=== PATIENT | male | born 1975 | race American Indian/Alaskan Native ===

== ENCOUNTER 2017-03-27 11:54 | Emergency (ER) | payer MEDICAID ==
[2017-03-27 11:54] VITALS: BMI 24.1
[2017-03-27 12:05] VITALS: BP 148/65; PULSE 81; RESP 20; TEMP 97; O2SAT 99
--- NOTE | 2017-03-27 12:54 | ED PDOC ---
HPI: General Adult Time Seen by Provider: 03/27/17 12:09 Chief Complaint (Nursing): Medical Clearance Chief Complaint (Provider): lab Additional Complaint(s): 42yoM in ED sent from clinic for PT/INR/PTT and to get coumadin Rx. no medical complaints at this time. Past Medical History Reviewed: Historical Data, Nursing Documentation, Vital Signs Vital Signs: Last Vital Signs Temp 97.0 F L 03/27/17 12:03 Pulse 81 03/27/17 12:03 Resp 20 03/27/17 12:03 BP 148/65 03/27/17 12:03 Pulse Ox 99 03/27/17 13:20 - Medical History PMH: HTN - Family History Family History: States: No Known Family Hx - Immunization History Hx Tetanus Toxoid Vaccination: Yes (2 years ago) - Home Medications Home Medications: Ambulatory Orders Medication Instructions Recorded Warfarin [Coumadin] 7.5 mg PO DAILY #8 tab 03/27/17 - Allergies Allergies/Adverse Reactions: Allergies Allergy/AdvReac Type Severity Reaction Status Date / Time No Known Allergies Allergy Verified 04/07/14 19:20 Review of Systems ROS Statement: Except As Marked, All Systems Reviewed And Found Negative Constitutional: Negative for: Fever, Weakness Skin: Negative for: Bruising Physical Exam - Reviewed Nursing Documentation Reviewed: Yes Vital Signs Reviewed: Yes - Physical Exam Appears: Positive for: Well, Non-toxic, No Acute Distress Skin: Positive for: Normal Color, Warm, DRY Cardiovascular/Chest: Positive for: Regular Rate, Rhythm Respiratory: Positive for: CNT, Normal Breath Sounds Extremity: Positive for: Normal ROM Neurologic/Psych: Positive for: Alert, Oriented - ECG O2 Sat by Pulse Oximetry: 99 - Progress ED Course And Treament: 13:15 Upon provider reevaluation patient is feeling better, is medically stable, and requires no further treatment in the ED at this time. Patient was counseled to take Coumadin at 7.5 mg and all questions were answered regarding diagnosis. There is agreement to discharge plan. Return if symptoms persist or worsen. 03/27/17 12:20 PT 25.4 H INR 2.4 H APTT 38.4 H Scribe Attestation: Documented by Annie Cutler, acting as a scribe for FRANCESCO Gates. Provider Scribe Attestation: All medical record entries made by the Scribe were at my direction and personally dictated by me. I have reviewed the chart and agree that the record accurately reflects my personal performance of the history, physical exam, medical decision making, and the department course for this patient. I have also personally directed, reviewed, and agree with the discharge instructions and disposition. Disposition - Clinical Impression Clinical Impression: History of Coumadin therapy, Anticoagulation monitoring, INR range 2.5-3.5 - Patient ED Disposition Is Patient to be Admitted: No Doctor Will See Patient In The: Office Counseled Patient/Family Regarding: Studies Performed, Need For Followup - Disposition Disposition: Routine/Home Disposition Time: 13:15 Condition: STABLE Additional Instructions: It is imperative you follow up with your doctor in in 3 days for a repeat INR. if you are dizzy please return to ER. Prescriptions: Warfarin [Coumadin] 7.5 mg PO DAILY #8 tab Instructions: Warfarin (By mouth) Forms: [employer] ([place])
[2017-03-27 13:07] LABS: PARTIAL THROMBOPLASTIN TIME 38.4 Seconds (25.6-37.1)
== END 2017-03-27 13:21 | disposition home or self-care (01) ==
LOC: H.ER 11:54
DX: Z79.01 Long term (current) use of anticoagulants (principal); Z51.81 Encounter for therapeutic drug level monitoring; I10 Essential (primary) hypertension

== ENCOUNTER 2017-09-16 09:38 | Emergency (ER) | payer MEDICAID ==
[2017-09-16 09:42] VITALS: BMI 22.4
[2017-09-16 09:43] VITALS: BP 134/89; PULSE 87; RESP 20; TEMP 98.4
[2017-09-16 09:56] VITALS: O2SAT 98
[2017-09-16] MEDS ORDERED: Lidocaine 1% Inj (20ml) IJ STA (10:28)
--- NOTE | 2017-09-16 10:34 | ED PDOC ---
HPI: Skin/Bite Injury Time Seen by Provider: 09/16/17 10:15 Chief Complaint (Nursing): Abnormal Skin Integrity Chief Complaint (Provider): Abscess History Per: Patient History/Exam Limitations: no limitations Onset/Duration Of Symptoms: Days (x 4-5) Current Symptoms Are (Timing): Still Present Location Of Injury: Left: Face (preauricular space) Quality Of Symptoms: Painful, Swollen Pain Scale Rating Of: 6 Additional Complaint(s): Hardik is a 42 y/o male with a history of abscesses who presents to the ED complaining of an abscess to the left side of his face for the past 4-5 days. Patient states he's been applying warm compresses to his face but has not taken any medications for his symptoms. He denies fever, chills, nausea, vomiting, diarrhea, headache, or vision changes. PMD: Rahul Past Medical History Reviewed: Historical Data, Nursing Documentation, Vital Signs Vital Signs: Last Vital Signs Temp 98.4 F 09/16/17 09:42 Pulse 87 09/16/17 09:42 Resp 20 09/16/17 09:42 BP 134/89 09/16/17 09:42 Pulse Ox 98 09/16/17 11:09 - Medical History PMH: HTN Other PMH: [place] - Surgical History Other surgeries: aortic valve repair, jaw wired shut status post fracture - Family History Family History: States: Unknown Family Hx - Social History Alcohol: None (history of alcohol abuse, no current use) Drugs: Cannabis (daily) - Immunization History Hx Tetanus Toxoid Vaccination: Yes (2 years ago) - Home Medications Home Medications: Ambulatory Orders Medication Instructions Recorded Warfarin [Coumadin] 7.5 mg PO DAILY #8 tab 03/27/17 Clindamycin [Cleocin] 300 mg PO TID #21 cap 09/16/17 - Allergies Allergies/Adverse Reactions: Allergies Allergy/AdvReac Type Severity Reaction Status Date / Time No Known Allergies Allergy Verified 04/07/14 19:20 Review of Systems ROS Statement: Except As Marked, All Systems Reviewed And Found Negative Constitutional: Negative for: Fever, Chills, Weakness Eyes: Negative for: Vision Change ENT: Negative for: Ear Pain, Throat Pain Cardiovascular: Negative for: Chest Pain Respiratory: Negative for: Cough Gastrointestinal: Negative for: Nausea, Vomiting, Diarrhea Skin: Positive for: Other (abscess left face) Neurological: Negative for: Headache Physical Exam - Reviewed Nursing Documentation Reviewed: Yes Vital Signs Reviewed: Yes - Physical Exam Appears: Positive for: Well, Non-toxic, No Acute Distress Head Exam: Positive for: ATRAUMATIC, NORMOCEPHALIC Skin: Positive for: Normal Color (1 cm x 1.5 cm fluctuant, erythematous abscess to left preauricular space, (+) tenderness, (-) surrounding cellulitis (-) active drainage), Warm, Dry Eye Exam: Positive for: EOMI, PERRL. Negative for: Nystagmus ENT: Positive for: Normal ENT Inspection, Pharynx Is (clear, uvula midline). Negative for: Nasal Congestion Neck: Positive for: Painless ROM, Supple Cardiovascular/Chest: Positive for: Regular Rate, Rhythm. Negative for: Murmur Respiratory: Positive for: Normal Breath Sounds. Negative for: Decreased Breath Sounds, Accessory Muscle Use, Respiratory Distress Gastrointestinal/Abdominal: Positive for: Soft. Negative for: Tenderness, Mass , Distended, Guarding Neurologic/Psych: Positive for: Alert, Oriented, Gait (steady). Negative for: Motor/Sensory Deficits - ECG O2 Sat by Pulse Oximetry: 98 (RA) Pulse Ox Interpretation: Normal Medical Decision Making Medical Decision Making: Time: 10:27 Initial Impression: Abscess Initial Plan: -Cleocin PO -I&D I&D performed at bedside by Kevin PADRON with purulent drainage. Patient tolerated procedure well. Procedure note below. Educated on wound care. Advised follow up in 2 days with PMD/ED/Clinic for packing removal/wound check. Based on history, exam and diagnostic results, plan will be for outpatient follow up. Advised to take medication as prescribed. Return to the emergency room at any time for any new or worsening symptoms. Patient states he fully agrees with and understands discharge instructions. States that he agrees with the plan and disposition. Verbalized and repeated discharge instructions and plan. I have given the patient opportunity to ask any additional questions. Scribe Attestation: Documented by Dalton Capone, acting as a scribe for Dori Brown PA-C Provider Scribe Attestation: All medical record entries made by the Scribe were at my direction and personally dictated by me. I have reviewed the chart and agree that the record accurately reflects my personal performance of the history, physical exam, medical decision making, and the department course for this patient. I have also personally directed, reviewed, and agree with the discharge instructions and disposition. Disposition - Clinical Impression Clinical Impression: Abscess - Patient ED Disposition Is Patient to be Admitted: No Counseled Patient/Family Regarding: Diagnosis, Need For Followup, Rx Given - Disposition Referrals: [facility] [Outside] Disposition: Routine/Home Disposition Time: 11:02 Condition: STABLE Additional Instructions: Follow up with PMD/ED/clinic in 1-2 days without fail for wound check, packing removal. Prescriptions: Clindamycin [Cleocin] 300 mg PO TID #21 cap Instructions: Skin Abscess, Abscess Incision and Drainage (DC) Forms: [employer] (M[place]ese) Print Language: ALBANIAN - POA Present On Arrival: None Procedures - Time-Out Type of Procedure: I&D - Incision and Drainage Site: left preauricular space Blade Size: 11 I & D Procedure: betadine prep, sterile dressing applied Progress: Numbed with 2mL lidoaine 1% Prepped with betadine Incised and drained of purulent material Irrigated after with NS 1/4in packing placed Dry sterile dressing applied Patient tolerated procedure well and was advised to follow up in 2 days for packing removal at PMD or here
== END 2017-09-16 11:23 | disposition home or self-care (01) ==
LOC: H.ER 09:38
DX: L02.01 Cutaneous abscess of face (principal); I10 Essential (primary) hypertension; Z79.01 Long term (current) use of anticoagulants